=== PATIENT | female | born 1985 | race Caucasian/White ===

== ENCOUNTER 2016-10-16 12:18 | Emergency (ER) | payer MEDICAID ==
[~2016-10-16] VITALS: Ht 162.6 cm; Wt 69.0 kg
[2016-10-16 13:10] VITALS: BP 111/72
[2016-10-16 13:58] LABS: BASOPHILS # (AUTO) 0.1 K/uL (0.00-0.22); EOSINOPHILS # (AUTO) 0.2 K/uL (0-0.4); EOSINOPHILS % (AUTO) 1.9 % (0.0-4.0); HEMOGLOBIN 12.9 g/dL (12.0-16.0); LYMPHOCYTES # (AUTO) 3.2 K/uL (2.5-16.5); LYMPHOCYTES % (AUTO) 32.9 % (20.5-51.1); MEAN CORPUSCULAR HEMOGLOBIN 30 pg (27-31); MEAN CORPUSCULAR HGB CONC 34 g/dL (33-37); MEAN CORPUSCULAR VOLUME 89 fL (80-94); MONOCYTES # (AUTO) 0.5 K/uL (0.8-1.0); MONOCYTES % (AUTO) 5.6 % (1.7-9.3); NEUTROPHILS # (AUTO) 5.6 K/uL (1.8-7.7); NEUTROPHILS % (AUTO) 58.6 % (42.2-75.2); PLATELET COUNT (AUTO) 386 K/uL (140-450); RED BLOOD CELL COUNT(AUTO) 4.28 MIL/uL (4.20-5.40); RED CELL DISTRIBUTION WIDTH 12.4 % (11.6-13.7); WHITE BLOOD COUNT (AUTO) 9.6 K/uL (4.8-10.8)
[2016-10-16 14:13] LABS: CALCIUM 8.3 mg/dL (8.5-10.1); CARBON DIOXIDE 28.8 mmol/L (21-32); CREATININE 0.8 mg/dL (0.6-1.3); POTASSIUM 3.8 mmol/L (3.5-5.1)
[2016-10-16 14:17] LABS: ALBUMIN 3.9 g/dL (3.4-5.0); TOTAL BILIRUBIN 0.3 mg/dL (0.0-1.0); TOTAL PROTEIN, SERUM 7.6 g/dL (6.4-8.2)
[2016-10-16] MEDS ORDERED: ALUMINUM HYD/MAG/SIMETHICONE 30 ML, BELLADONNA/PHENOBARBITAL 10 ML, LIDOCAINE VISCOUS 2... PO ONE ×3 (18:40)
[2016-10-16] MEDS ORDERED: LIDOCAINE VISCOUS 2% 20 ML UDC ONE (19:07)
[2016-10-16] MEDS ORDERED: MORPHINE SULFATE 4 MG/ML SYR IVP ONE (19:50)
[2016-10-16] MEDS ORDERED: NACL 0.9% 1,000 ML IV ONE (19:50)
[2016-10-16] MEDS ORDERED: ONDANSETRON 4 MG/2 ML VIAL IVP ONE (19:50)
[2016-10-16 21:19] VITALS: BP 117/61
== END 2016-10-16 21:20 | disposition home or self-care (01) ==
LOC: MED 12:18
DX: R10.12 Left upper quadrant pain (principal)
CPT/HCPCS: 36415; 80053; 81002; 81025; 83690; 85025; 96361; 96374; 96375; 99284; J2270; J2405; J7030